=== PATIENT | male | born 1990 | race Caucasian/White ===

== ENCOUNTER 2019-11-08 01:22 | Emergency (ER) | payer SELFPAY ==
--- NOTE | 2019-11-08 02:04 | ER ---
Nurse's Notes [facility] Name: Jasson Lambert Age: 29 yrs Sex: Male : 1990 Arrival Date: 11/08/2019 Time: 01:26 Bed 6 Private MD: Diagnosis: Laceration of flexor muscle, fascia and tendon of right middle finger at wrist and hand level Presentation: 11/07 01:37 Chief complaint: Patient states: Was cleaning a glass tonight and broke, laceration to lp1 right middle finger;. Coronavirus screen: Client denies travel out of the [place] in the last 14 days. At this time, the client does not indicate any symptoms associated with coronavirus-19. Ebola Screen: No symptoms or risks identified at this time. Initial Sepsis Screen: Does the patient meet any 2 criteria? No. Patient's initial sepsis screen is negative. Does the patient have a suspected source of infection? No. Patient's initial sepsis screen is negative. Risk Assessment: Do you want to hurt yourself or someone else? Patient reports no desire to harm self or others. Onset of symptoms was November 08, 2019. 01:37 Method Of Arrival: Ambulatory lp1 01:37 Acuity: DEMARCO 4 lp1 Triage Assessment: 01:39 Injury Description: Laceration sustained to dorsal aspect of proximal phalanx of right lp1 middle finger is clean, 0.5 to 2.5 cm long. 01:50 General: Appears uncomfortable, Behavior is cooperative. mt2 Historical: - Allergies: 01:39 No Known Allergies; lp1 - Home Meds: 01:39 None [Active]; lp1 - PMHx: 01:39 None; lp1 - PSHx: 01:39 None; lp1 - Immunization history:: Adult Immunizations up to date, Last tetanus immunization: unknown. - Social history:: Smoking status: Patient denies any tobacco usage or history of. Screenin:39 Abuse screen: Denies threats or abuse. Denies injuries from another. Nutritional lp1 screening: No deficits noted. Tuberculosis screening: No symptoms or risk factors identified. Fall Risk None identified. Assessment: 01:48 Pain: Complains of pain in right hand Pain currently is 5 out of 10 on a pain scale. mt2 Quality of pain is described as aching. Derm: Wound noted dorsal aspect of proximal phalanx of right middle finger Wound is LACERATION. Musculoskeletal: Reports pain in right hand. Vital Signs: 01:37 BP 146 / 90; Pulse 90; Resp 18; Temp 99(TE); Pulse Ox 100% on R/A; Weight 74.84 kg; lp1 ED Course: 01:26 Patient arrived in ED. am2 01:35 Liv Lindsey RN is Primary Nurse. mt2 01:37 Adan Pritchett MD is Attending Physician. tw4 01:38 Triage completed. lp1 01:38 Arm band placed on. lp1 01:39 Patient has correct armband on for positive identification. lp1 01:39 Patient did not have IV access during this emergency room visit. lp1 02:00 Dressings: Steri strips 1/4 " X 3;. Wound care: to laceration located on dorsal aspect mg2 of proximal phalanx of right middle finger was cleaned with Betadine, soaked in Betadine solution, dressed with steri-strips, Patient tolerated well. 02:13 No provider procedures requiring assistance completed. Dressings: derrmabond applied. 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 Exp: mt2 05/05/2022. Lot #: [id number]. } Route: IM; Site: left deltoid; 02:13 Follow up: Response: No adverse reaction mg2 Outcome: 02:04 Discharge ordered by . tw4 02:13 Discharged to home ambulatory. mg2 02:13 Condition: stable 02:13 Discharge instructions given to patient, Instructed on discharge instructions, follow up and referral plans. Demonstrated understanding of instructions, follow-up care, wound care. 02:14 Patient left the ED. mg2 Signatures: Ritu Snyder, RN RN lp1 Emily Bee am2 Adan Pritchett MD MD tw4 Cristian Fernández RN RN mg2 Liv Lindsey RN RN mt2
--- NOTE | 2019-11-08 02:04 | EDPHYS ---
Physician Documentation [facility] Name: Jasson Lambert Age: 29 yrs Sex: Male : 1990 Arrival Date: 11/08/2019 Time: 01: Bed 6 Private MD: ED Physician Adan Pritchett HPI: 11/07 06:39 This 29 yrs old Male presents to ER via Ambulatory with complaints of Finger tw4 Injury, Laceration. 06:39 The patient or guardian reports injury, a laceration, clean, 2 cm(s). The complaints tw4 affect the dorsal aspect of proximal phalanx of right middle finger. Context: The problem was sustained at home. Severity of symptoms: At their worst the symptoms were. The patient has not experienced similar symptoms in the past. Historical: - Allergies: 01:39 No Known Allergies; lp1 - Home Meds: 01:39 None [Active]; lp1 - PMHx: 01:39 None; lp1 - PSHx: 01:39 None; lp1 - Immunization history:: Adult Immunizations up to date, Last tetanus immunization: unknown. - Social history:: Smoking status: Patient denies any tobacco usage or history of. ROS: 06:39 Constitutional: Negative for fever, chills, and weight loss, Eyes: Negative for injury, tw4 pain, redness, and discharge, Cardiovascular: Negative for chest pain, palpitations, and edema, Respiratory: Negative for shortness of breath, cough, wheezing, and pleuritic chest pain, Abdomen/GI: Negative for abdominal pain, nausea, vomiting, diarrhea, and constipation. 06:39 Back: Negative for injury and pain, Skin: Negative for injury, rash, and discoloration. 06:39 MS/extremity: Positive for laceration. Exam: 06:39 Constitutional: This is a well developed, well nourished patient who is awake, alert, tw4 and in no acute distress. Head/Face: Normocephalic, atraumatic. Cardiovascular: Regular rate and rhythm with a normal S1 and S2. No gallops, murmurs, or rubs. Normal PMI, no JVD. No pulse deficits. Respiratory: Lungs have equal breath sounds bilaterally, clear to auscultation and percussion. No rales, rhonchi or wheezes noted. No increased work of breathing, no retractions or nasal flaring. Abdomen/GI: Soft, non-tender, with normal bowel sounds. No distension or tympany. No guarding or rebound. No evidence of tenderness throughout. 06:39 Musculoskeletal/extremity: Extremities: noted in the dorsal aspect of proximal phalanx of right middle finger: Vital Signs: 01:37 BP 146 / 90; Pulse 90; Resp 18; Temp 99(TE); Pulse Ox 100% on R/A; Weight 74.84 kg; lp1 Laceration: 06:39 Wound Repair of 2cm ( 0.8in ) subcutaneous laceration to dorsal aspect of proximal tw4 phalanx of right middle finger. Linear shaped.. Distal neuro/vascular/tendon intact. Wound prep: Simple cleansing. Skin closed with 1-0 Adhesive skin closure using simple sutures and sterile technique. Dressed with tube gauze. Patient tolerated well. MDM: 01:37 Patient medically screened. tw4 06:39 Differential diagnosis: dislocation, closed fracture. Data reviewed: vital signs, tw4 nurses notes. Data interpreted: Pulse oximetry: Interpretation: normal. Counseling: I had a detailed discussion with the patient and/or guardian regarding: the historical points, exam findings, and any diagnostic results supporting the discharge/admit diagnosis. Special discussion: I discussed with the patient/guardian in detail that at this point there is no indication for admission to the hospital. It is understood, however, that if the symptoms persist or worsen the patient needs to return immediately for re-evaluation. 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 Exp: mt2 05/05/2022. Lot #: [id number]. } Route: IM; Site: left deltoid; 02:13 Follow up: Response: No adverse reaction mg2 Disposition: 11/08/19 02:04 Discharged to Home. Impression: Laceration of flexor muscle, fascia and tendon of right middle finger at wrist and hand level. - Condition is Stable. - Discharge Instructions: Laceration Care, Adult. - Medication Reconciliation Form, Thank You Letter, Antibiotic Education, Prescription Opioid Use form. - Follow up: Private Physician; When: Upon discharge from the Emergency Department; Reason: Recheck today's complaints, Continuance of care, Re-evaluation by your physician. - Problem is new. - Symptoms have improved. Signatures: Ritu Snyder RN RN lp1 Adan Pritchett MD MD tw4 Cristian Fernández, RN RN mg2 Liv Lindsey RN RN mt2 Corrections: (The following items were deleted from the chart) 02:14 02:04 11/08/2019 02:04 Discharged to Home. Impression: Laceration of flexor muscle, mg2 fascia and tendon of right middle finger at wrist and hand level. Condition is Stable. Forms are Medication Reconciliation Form, Thank You Letter, Antibiotic Education, Prescription Opioid Use. Follow up: Private Physician; When: Upon discharge from the Emergency Department; Reason: Recheck today's complaints, Continuance of care, Re-evaluation by your physician. Problem is new. Symptoms have improved. tw4
[2019-11-08] MEDS ORDERED: TETANUS & DIPHTHERIA TOX,ADULT 0.5 ML VIAL ONE (02:09)
[2019-11-08] MEDS ORDERED: DERMABOND SKIN ADHESIVE TOP ONE (02:20)
[2019-11-08 20:42] VITALS: BP 146/90; TEMP 99; O2SAT 100
== END 2019-11-08 02:14 | disposition home or self-care (01) ==
LOC: ER 01:22
PROC: 0JQJ0ZZ Repair Right Hand Subcutaneous Tissue and Fascia, Open Approach (ICD-10-PCS; principal; 2019-11-08)
DX: S66.122A Laceration of flexor muscle, fascia and tendon of right middle finger at wrist and hand level, initial encounter (principal); W45.8XXA Other foreign body or object entering through skin, initial encounter; Y93.9 Activity, unspecified; Y92.009 Unspecified place in unspecified non-institutional (private) residence as the place of occurrence of the external cause; Z23 Encounter for immunization
CPT/HCPCS: 90471; 90714; 99283